=== PATIENT | female | born 1965 | race Caucasian/White ===

== ENCOUNTER 2019-04-20 10:14 | Emergency (ER) | payer SELFPAY ==
[~2019-04-20] VITALS: Ht 160 cm; Wt 88.4 kg
[~2019-04-20 10:14] MED LIST: CITA10TA4 PO; CYCL-331 PO; CYCL5TAB PO; DIAZ10TA PO; HYDR-2155 PO; HYDR-3165 PO; HYDR1TAB10 PO; LISI1TAB23 PO; NAPR-683 PO; RANI150T2 PO
[2019-04-20 10:27] VITALS: BP 156/102
[2019-04-20] MEDS ORDERED: HYDR-3136 PO (10:51)
[2019-04-20] MEDS ORDERED: CYCL-331 PO (10:53)
[2019-04-20] MEDS ORDERED: ORPHENADRINE CITRATE 60 MG/2 ML VIAL. IM ONE (11:00)
[2019-04-20] MEDS ORDERED: ONDANSETRON ODT 4 MG TAB.RAPDIS PO ONE (11:00)
[2019-04-20] MEDS ORDERED: MORPHINE SULFATE 10 MG/ML SYRINGE. IM ONE (11:00)
--- NOTE | 2019-04-20 11:31 | PHYS DOC ---
Past History Past Medical History: Arthritis, GERD, Hypertension Additional Past Medical Histor: low back pain Past Surgical History: Cholecystectomy, Gastric Bypass, Hysterectomy, Knee Replacement Smoking: Less than 1pk/day Alcohol Use: None Drug Use: None Adult General Chief Complaint Chief Complaint: BACK PAIN OR INJURY [facility] Patient is a 54-year-old female with history of chronic back pain who presents with exacerbation of low back pain. Patient reports diffuse lower abdominal pain after lifting a heavy box yesterday. Pain is nonradiating is described as sharp is rated moderate to severe and worse with palpation, trunk rotation and movement. Patient has taken [id number] medication without relief. Denies lower extremity weakness, loss of sensation, saddle anesthesia. No inc ontinence. No other acute symptoms or complaints. [] Review of Systems Review of Systems Review of symptoms as per HPI. All other review of symptoms are negative. All other systems were reviewed and found to be within normal limits, except as documented in this note. Current Medications Current Medications Current Medications Medications (Trade) Dose Ordered Sig/Carolyn Start Time Stop Time Status Last Admin Dose Admin Morphine Sulfate (Morphine 10mg Syringe) 10 mg 1X ONCE 04/20/19 11:00 04/20/19 11:01 DC 04/20/19 11:00 10 MG Ondansetron HCl (Zofran Odt) 4 mg 1X ONCE 04/20/19 11:00 04/20/19 11:01 DC 04/20/19 11:00 4 MG Orphenadrine Citrate (Norflex) 60 mg 1X ONCE 04/20/19 11:00 04/20/19 11:01 DC 04/20/19 11:00 60 MG Allergies Allergies Allergies Coded Allergies Type Severity Reaction Last Updated Verified codeine Allergy Unknown 04/20/19 Yes Physical Exam Physical Exam Constitutional: Well developed, well nourished, no acute distress, non-toxic appearance. [] HENT: Normocephalic, atraumatic, bilateral external ears normal, oropharynx moist, nose normal. [] Eyes: PERRLA, EOMI, conjunctiva normal, no discharge. [] Neck: Normal range of motion, no tenderness, supple, no stridor. [] Cardiovascular:Heart rate regular rhythm, no murmur [] Lungs & Thorax: Bilateral breath sounds clear to auscultation [] Abdomen: Bowel sounds normal, soft, no tenderness. [] Skin: Warm, dry, no erythema, no rash. [] Back: No CVA tenderness. Diffuse low back pain, reproduces with trunk rotation and palpation. [] Extremities: No tenderness, no cyanosis, no clubbing, ROM intact, no edema. [] Neurologic: Alert and oriented X 3, lower extremities, normal motor function, normal sensory function, no focal deficits noted. Negative straight leg raising test. [] Psychologic: Affect normal, judgement normal, mood normal. [] Current Patient Data Vital Signs Vital Signs Date Time Temp Pulse Resp B/P (MAP) Pulse Ox O2 Delivery O2 Flow Rate FiO2 04/20/19 11:00 16 98 Room Air 04/20/19 10:27 98.3 65 156/102 (120) EKG EKG [] Radiology/Procedures Radiology/Procedures [] Course & Med Decision Making Course & Med Decision Making Pertinent Labs and Imaging studies reviewed. (See chart for details) [Mechanical back pain without neurologic compromise. Symptoms improved with treatment. Recommend supportive care with PCP follow-up. Return precautions reviewed.] Dragon Disclaimer Dragon Disclaimer This electronic medical record was generated, in whole or in part, using a voice recognition dictation system. Departure Departure: Impression: Primary Impression: Low back strain Disposition: HOME, SELF-CARE Condition: STABLE Patient Instructions: Musculoskeletal Pain Additional Instructions: Please avoid strenuous physical activity, bending and heavy lifting. Continue naproxen for back pain. Take hydrocodone and Flexeril as needed for additional pain relief. Follow-up with your PCP for further management. Scripts Cyclobenzaprine Hcl (CYCLOBENZAPRINE HCL) 10 Mg Tablet 1 TAB PO TID, #30 TAB Prov: SUNNY VICTOR DO 04/20/19 Hydrocodone Bit/Acetaminophen (NORCO 10-325 TABLET) 1 Each Tablet 1 TAB PO QID, #12 TAB Prov: SUNNY VICTOR DO 04/20/19 SUNNY VICTOR DO Apr 20, 2019 11:31
== END 2019-04-20 11:23 | disposition home or self-care (01) ==
LOC: ER 10:14
DX: S39.012A Strain of muscle, fascia and tendon of lower back, initial encounter (principal); R10.30 Lower abdominal pain, unspecified; M19.90 Unspecified osteoarthritis, unspecified site; K21.9 Gastro-esophageal reflux disease without esophagitis; I10 Essential (primary) hypertension; F17.200 Nicotine dependence, unspecified, uncomplicated; Z90.49 Acquired absence of other specified parts of digestive tract; Z98.84 Bariatric surgery status; Z90.710 Acquired absence of both cervix and uterus; Z88.5 Allergy status to narcotic agent; X50.9XXA Other and unspecified overexertion or strenuous movements or postures, initial encounter; Y93.89 Activity, other specified; Y92.89 Other specified places as the place of occurrence of the external cause; Y99.8 Other external cause status
CPT/HCPCS: 96372; 99284; J2270; J2360; Q0162

== ENCOUNTER 2019-07-12 12:14 | Emergency (ER) | payer OTHER ==
[~2019-07-12] VITALS: Ht 160 cm; Wt 91.0 kg
[~2019-07-12 12:14] MED LIST changes: +HYDR-3136 PO
[2019-07-12 12:23] VITALS: BP 113/73
[2019-07-12] MEDS ORDERED: HYDR-3165 PO (13:31)
--- NOTE | 2019-07-12 13:32 | PHYS DOC ---
Past History Past Medical History: Arthritis, GERD, Hypertension Additional Past Medical Histor: low back pain Past Surgical History: Cholecystectomy, Gastric Bypass, Hysterectomy, Knee Replacement Smoking: Less than 1pk/day Alcohol Use: None Drug Use: None General Adult EDM: Chief Complaint: MECHANICAL FALL HPI: HPI: 54-year-old female presents with left shoulder and right forearm pain. She had a work accident last night for which she went over to [facility] for evaluation. There were no fractures, but she has a sprained right wrist and ecchymosis of the left proximal to mid humerus. She also has some worsening left knee pain though she is still able to walk. The patient was given 6 Hopewell at discharge. The patient was up all night with the pain and took them every 4 hours. She is now out. She was not expecting the pain to continue to increase in last this long. She understands that she will have to be more conservative with her medication and tolerate higher level of pain. She denies any new injuries. Review of Systems: Review of Systems: Constitutional: Denies fever or chills Eyes: Denies change in visual acuity HENT: Denies nasal congestion or sore throat Respiratory: Denies cough or shortness of breath Cardiovascular: Denies chest pain or edema GI: Denies abdominal pain, nausea, vomiting, bloody stools or diarrhea : Denies dysuria Musculoskeletal: Right forearm pain, left upper arm pain, left knee pain Integument: Denies rash Neurologic: Denies headache, focal weakness or sensory changes Endocrine: Denies polyuria or polydipsia Lymphatic: Denies swollen glands Psychiatric: Denies depression or anxiety Heart Score: Risk Factors: Risk Factors: DM, Current or recent (<one month) smoker, HTN, HLP, family history of CAD, obesity. Risk Scores: Score 0 - 3: 2.5% MACE over next 6 weeks - Discharge Home Score 4 - 6: 20.3% MACE over next 6 weeks - Admit for Clinical Observation Score 7 - 10: 72.7% MACE over next 6 weeks - Early Invasive Strategies Allergies: Allergies: Allergies Coded Allergies Type Severity Reaction Last Updated Verified codeine Allergy Unknown 04/20/19 Yes Physical Exam: PE: Constitutional: Well developed, well nourished, no acute distress, non-toxic appearance. [] HENT: Normocephalic, atraumatic, bilateral external ears normal, oropharynx moist, no oral exudates, nose normal. [] Eyes: PERRLA, EOMI, conjunctiva normal, no discharge. [] Neck: Normal range of motion, no tenderness, supple, no stridor. [] Cardiovascular: Heart rate regular rhythm, no murmur [] Lungs & Thorax: Bilateral breath sounds clear to auscultation [] Abdomen: Bowel sounds normal, soft, no tenderness, no masses, no pulsatile masses. [] Skin: Ecchymosis of the left medial knee, left upper arm [] Back: No tenderness, no CVA tenderness. [] Extremities: Tenderness over the right wrist and forearm. [] Neurologic: Alert and oriented X 3, normal motor function, normal sensory function, no focal deficits noted. [] Psychologic: Affect normal, judgement normal, mood normal. [] EKG: EKG: [] Radiology/Procedures: Radiology/Procedures: [] Course & Med Decision Making: Course & Med Decision Making Pertinent Labs and Imaging studies reviewed. (See chart for details) I will give the patient an additional 10 Hopewell 5/325 her pain. She understands that she will have to make these last and she left tolerate some level of pain. She is stable for discharge at this time. [] Dragon Disclaimer: Dragon Disclaimer: This electronic medical record was generated, in whole or in part, using a voice recognition dictation system. Departure Departure: Impression: Primary Impression: Contusion of left upper arm Qualified Codes: S40.022A - Contusion of left upper arm, initial encounter Additional Impressions: Contusion of right knee, initial encounter Right wrist sprain Qualified Codes: S63.501A - Unspecified sprain of right wrist, initial encounter Disposition: HOME/RESIDENCE PRIOR TO ADM Condition: STABLE Referrals: PCP,NO (PCP) Patient Instructions: Contusion, [id number], Wrist Sprain with Rehab- [facility] Scripts Hydrocodone Bit/Acetaminophen (NORCO 5-325 TABLET) 1 Each Tablet 1 TAB PO PRN Q6HRS PRN for PAIN, #10 TAB 0 Refills Prov: SUNNY MCGARRY DO 07/12/19 SUNNY MCGARRY DO July 12, 2019 13:32
== END 2019-07-12 13:37 | disposition home or self-care (01) ==
LOC: ER 12:14
DX: S63.501A Unspecified sprain of right wrist, initial encounter (principal); X58.XXXA Exposure to other specified factors, initial encounter; Y93.89 Activity, other specified; Y92.89 Other specified places as the place of occurrence of the external cause; Y99.8 Other external cause status; S40.022A Contusion of left upper arm, initial encounter; S80.01XA Contusion of right knee, initial encounter; M19.90 Unspecified osteoarthritis, unspecified site; K21.9 Gastro-esophageal reflux disease without esophagitis; I10 Essential (primary) hypertension; F17.200 Nicotine dependence, unspecified, uncomplicated; Z88.5 Allergy status to narcotic agent
CPT/HCPCS: 99283